=== PATIENT | male | born 1965 | race Caucasian/White ===

== ENCOUNTER 2017-11-27 09:11 | Emergency (ER) | payer OTHER ==
[~2017-11-27] VITALS: Ht 177.8 cm; Wt 139.2 kg
[2017-11-27 09:14] VITALS: BP 164/106
== END 2017-11-27 11:08 | disposition home or self-care (01) ==
LOC: ED 10:45
DX: S29.012A Strain of muscle and tendon of back wall of thorax, initial encounter (principal); I10 Essential (primary) hypertension; V89.2XXA Person injured in unspecified motor-vehicle accident, traffic, initial encounter; Y93.89 Activity, other specified; Y92.89 Other specified places as the place of occurrence of the external cause; Y99.8 Other external cause status
CPT/HCPCS: 71046; 99284; J7512

== ENCOUNTER → 2021-01-08 | Outpatient (CLI) | payer OTHER | END | disposition home or self-care (01) | LOC: RAD 10:09 | PROVIDERS: ATTEND Nurse Practitioner Family | DX: N43.3 Hydrocele, unspecified (principal); R10.30 Lower abdominal pain, unspecified | CPT/HCPCS: 76870 ==